=== PATIENT | male | born 1950 | race Caucasian/White ===

== ENCOUNTER 2019-07-09 22:11 | Observation (INO) ==
[2019-07-09] MEDS ORDERED: ASPIRIN 325 MG TABLET PO STA (22:35)
[2019-07-09] MEDS ORDERED: NITROGLYCERIN SL 0.4 MG TABLET SL PRN (22:35)
[2019-07-09 22:47] LABS: Basophils # 0.1 10*3/uL (0.0-0.2); Basophils % 0.9 % (0.0-0.8); Eosinophils # 0.1 10*3/uL (0.0-0.87); Eosinophils % 1.7 % (0.00-10.9); Hematocrit 50.6 VOL% (42.0-52.0); Hemoglobin 17.1 GM/DL (14.0-18.0); Immature Granulocytes % 0.3 %; Immature Granulocytes Absolute 0.02 #; Lymphocytes # 2.3 10*3/uL (1.4-4.0); Lymphocytes % 32.7 % (21.2-54.2); Mean Corpuscular HGB Conc 33.8 GM/DL (32-36); Mean Corpuscular Volume 87.1 FL (87-102); Mean Platelet Volume 10.3 FL (9.6-12.0); Monocytes % 9.3 % (1.7-12.7); Neutrophils % 55.1 % (38.7-73.9); Platelet Count 171 T/CUMM (130-400); Red Blood Count 5.81 MC/CUMM (3.8-5.5); Red Cell Distribution Width 12.8 % (9.3-17.3)
[2019-07-09 23:04] LABS: PT Patient Result 10.6 SECS (9.8-11.9)
[2019-07-09 23:09] LABS: Calcium 10.1 MG/DL (8.5-10.1); Osmolality,Calculated 274.8 MOS/KG (273-304)
[2019-07-09] MEDS ORDERED: ACETAMINOPHEN 500 MG TABLET PO STA (23:41)
[2019-07-09] MEDS ORDERED: ACETAMINOPHEN 500 MG TABLET ONE (23:42)
[2019-07-10] MEDS ORDERED: ONDANSETRON 4 MG/2 ML VIAL IV PRN (00:23)
[2019-07-10] MEDS ORDERED: SIMETHICONE CHEW 125 MG TABLET PO PRN (00:23)
[2019-07-10] MEDS ORDERED: ACETAMINOPHEN 325 MG TABLET PO PRN (00:23)
[2019-07-10] MEDS ORDERED: MORPHINE 4 MG/1 ML VIAL IV PRN (00:23)
[2019-07-10] MEDS ORDERED: DEXTROSE 50% 25 GM/50 ML VIAL IV PRN (00:23)
[2019-07-10] MEDS ORDERED: ALUMINUM/MAGNES/SIMETH MAX STR 30 ML UDCUP PO PRN (00:23)
[2019-07-10] MEDS ORDERED: GLUCAGON 1 MG VIAL IM PRN (00:23)
[2019-07-10] MEDS ORDERED: ALUM/MAG/SIMETH/LIDO VISC 1:1 30 ML BOTTLE PO ONE (00:29)
[2019-07-10] MEDS ORDERED: hydrALAZINE 20 MG/1 ML VIAL IV PRN (00:59)
[2019-07-10] MEDS ORDERED: ATORVASTATIN 40 MG TABLET PO ONE (01:00)
[2019-07-10] MEDS ORDERED: ENOXAPARIN 120 MG/0.8 ML SYRINGE SUBCUT ONE (01:00)
[2019-07-10] MEDS: FAMOTIDINE 20 MG TABLET PO SCH ×2 (02:48→10:04)
[2019-07-10 05:31] LABS: Basophils # 0.1 10*3/uL (0.0-0.2); Basophils % 0.7 % (0.0-0.8); Eosinophils # 0.1 10*3/uL (0.0-0.87); Eosinophils % 1.5 % (0.00-10.9); Hematocrit 48.7 VOL% (42.0-52.0); Hemoglobin 16.4 GM/DL (14.0-18.0); Immature Granulocytes % 0.3 %; Immature Granulocytes Absolute 0.02 #; Lymphocytes # 2.2 10*3/uL (1.4-4.0); Lymphocytes % 30.2 % (21.2-54.2); Mean Corpuscular HGB Conc 33.7 GM/DL (32-36); Mean Corpuscular Volume 87.9 FL (87-102); Mean Platelet Volume 10.6 FL (9.6-12.0); Monocytes % 9.2 % (1.7-12.7); Neutrophils % 58.1 % (38.7-73.9); Platelet Count 149 T/CUMM (130-400); Red Blood Count 5.54 MC/CUMM (3.8-5.5); Red Cell Distribution Width 12.6 % (9.3-17.3); White Blood Count 7.4 T/CUMM (4-12)
[2019-07-10 06:05] LABS: Albumin 3.3 G/DL (3.4-5.0); Bilirubin,Total 1.4 MG/DL (0.2-1.0); Calcium 9.7 MG/DL (8.5-10.1); Osmolality,Calculated 274.8 MOS/KG (273-304); Risk Ratio 3.07; Total Protein 6.8 G/DL (6.4-8.3); VLDL CHOLESTEROL 18.8 MG/DL
[2019-07-10] MEDS: INSULIN REGULAR 100 UNIT/ML SUBCUT SCH ×2 (08:31→12:31)
[2019-07-10] MEDS ORDERED: lisinopriL 20 MG TABLET PO SCH (09:00)
[2019-07-10] MEDS ORDERED: CYCLOBENZAPRINE 10 MG TABLET PO PRN (09:43)
[2019-07-10 15:48] VITALS: BP 141/88
[2019-07-10] MEDS ORDERED: ATORVASTATIN 80 MG TABLET PO SCH (21:00)
[2019-07-11] MEDS ORDERED: ASPIRIN EC 325 MG TABLET PO SCH (09:00)
== END 2019-07-10 15:35 | disposition home or self-care (01) ==
LOC: N.EDINP 22:11 → N.ED 22:11 → SUATTDRO 07-10 00:23 → N.EDINP 07-10 02:10 → N.TELEN 07-10 02:39
PROVIDERS: ADMIT Internal Medicine; ATTEND Internal Medicine